=== PATIENT | male | born 1940 | race American Indian/Alaskan Native ===

== ENCOUNTER 2020-01-27 07:50 | Observation (INO) | payer BC ==
[2020-01-27 09:20] LABS: Hematocrit 43.1 % (35.5-45.6); Hemoglobin 14.5 gm/dl (11.8-15.2); Mean Corpuscular HGB Conc 34 % (32-34); Mean Corpuscular Volume 106 fl (84-94); Platelet Count 236 K/mm3 (140-440); Red Blood Count 4.07 M/mm3 (3.65-5.03); Red Cell Distribution Width 15.3 % (13.2-15.2)
[2020-01-27 09:30] LABS: INR 0.95 (0.87-1.13)
[2020-01-27 09:31] LABS: Partial Thromboplastin Time 29.2 Sec. (24.2-36.6)
[2020-01-27 09:34] LABS: BUN/Creatinine Ratio 18; Blood Urea Nitrogen 21 mg/dL (9-20); Calcium 9.6 mg/dL (8.4-10.2); Hemolysis Index 19
[2020-01-27] MEDS: CLOPIDOGREL 75 MG TAB PO SCH (09:40)
[2020-01-27] MEDS: SODIUM CHLORIDE 0.9% 500 ML 500 ML IV SCH ×2 (09:42→10:20)
[2020-01-27] MEDS ORDERED: ASPIRIN EC 81 MG TAB PO SCH (10:00)
[2020-01-27] MEDS ORDERED: fentaNYL 100 MCG/2 ML INJ ONE (10:03)
[2020-01-27] MEDS ORDERED: NITROGLYCERIN SYRINGE 3 ML ONE (10:03)
[2020-01-27] MEDS ORDERED: HEPARIN/NS 5000 UNIT/500ML 1,000 ML IR ONE (10:03)
[2020-01-27] MEDS ORDERED: MIDAZOLAM 2 MG/2 ML INJ ONE (10:03)
[2020-01-27] MEDS ORDERED: LIDOCAINE (2%) 20 MG/1 ML VIAL 20 ML MDV INFILTRATI ONE (10:03)
[2020-01-27] MEDS: VERAPAMIL 5 MG/2 ML INJ ONE ×2 (10:31→10:35)
[2020-01-27] MEDS: HEPARIN 10,000 UNITS/10 ML VIAL ONE ×2 (10:31→10:50)
[2020-01-27] MEDS ORDERED: SODIUM CHLORIDE 0.9% 500 ML 500 ML ONE (10:55)
[2020-01-27] MEDS ORDERED: HEPARIN/NS 5000 UNIT/500ML 500 ML IR ONE (11:04)
[2020-01-27] MEDS ORDERED: HEPARIN 10,000 UNITS/10 ML VIAL ONE (11:08)
[2020-01-27] MEDS ORDERED: CLOPIDOGREL 300 MG TAB ONE (11:25)
[2020-01-27] MEDS ORDERED: ALUM-MAG HYDROXIDE-SIMETHICONE 200-200-20MG/5ML ORAL LIQD 30 ML ONE (11:25)
--- NOTE | 2020-01-27 12:07 | Short Stay Summary ---
Short Stay Documentation Date of service: 01/27/20 - History H&P: obtained from office - Allergies and Medications Current Medications: Allergies No Known Allergies Allergy (Unverified 01/27/20 08:35) Home Medications Medication Instructions Recorded Confirmed Last Taken Type Clopidogrel [Plavix] 75 mg PO QDAY 01/27/20 01/27/20 01/27/20 History 0921 Losartan/Hydrochlorothiazide 25 - 100 mg PO DAILY 01/27/20 01/27/20 01/26/20 History [Losartan-Hctz 50-12.5 mg Tab] 1 tab Simvastatin 20 mg PO DAILY 01/27/20 01/27/20 01/26/20 History 1 tab Active Medications Aspirin (Halfprin Ec) 81 mg PO QDAY [facility] Last Admin: 01/27/20 09:40 Dose: 81 mg Documented by: Aspirin (Baby Aspirin) 81 mg PO QDAY RADHA Clopidogrel Bisulfate (Plavix) 75 mg PO QDAY [facility] Last Admin: 01/27/20 09:40 Dose: 75 mg Documented by: Sodium Chloride (Nacl 0.9% 500 Ml) 500 mls @ 50 mls/hr IV DIRECT RADHA Stop: 01/27/20 23:59 Last Admin: 01/27/20 10:20 Dose: 50 mls/hr Documented by: - Brief post op/procedure progress note Date of procedure: 01/27/20 Pre-op diagnosis: abnormal stress test Post-op diagnosis: other (CAD) Procedure: CAD with PCI - see dictated cath report Anesthesia: local Estimated blood loss: none Condition: stable - Disposition Condition at discharge: Good Disposition: DC-01 TO HOME OR SELFCARE - Discharge Diagnoses (1) CAD (coronary artery disease) Status: Chronic (2) Stented coronary artery Status: Chronic (3) HTN (hypertension) Status: Chronic (4) Hyperlipidemia Status: Chronic (5) PVD (peripheral vascular disease) Status: Chronic (6) Carotid stenosis Status: Chronic Short Stay Discharge Plan Activity: advance as tolerated Diet: low fat, low cholesterol, low salt Wound: open to air, keep clean and dry, per your surgeon's advice Follow up with: LARISA GARCIA MD [Primary Care Provider] - 7 Days SARMAD MCKENZIE MD [Staff Physician] - 7 Days
--- NOTE | 2020-01-27 12:38 | Cardiac Catherization Report ---
LEFT HEART CATH-PERCUTANEOUS CORONARY INTERVENTION-INTRAVASCULAR ULTRASOUND REPORT CLINICAL INFORMATION: This patient is a 79-year-old gentleman with past medical history of hypertension, hyperlipidemia, left carotid occlusion, is here with shortness of breath with abnormal stress test. Procedure was done with moderate sedation started at 10:29, finished at 11:18, which is 49 minutes of moderate sedation. Procedure was performed via the right radial artery, sterile technique, local anesthesia, 6-[place] radial sheath inserted. Subselectively, left system engaged with an AL1 catheter. Left main is large and patent, bifurcates into medium caliber LAD that is diffusely 30%, diagonal 1 is a medium caliber vessel, patent with mild luminal irregularities. Circumflex is patent, mid section after OM1 has a 40% lesion. OM1 proximal has a 95% lesion of a [id number] caliber vessel and OM2 is a small to medium caliber vessel, patent, distal circ small patent. RCA engaged with JR4 catheter, dominant vessel, mid 99% with NONI 2 flow. LV gram done in ELVIRA and SOOD view shows normal LV function, LVEDP is 13 mmHg, LV is 124, aortic is 123/59. No gradient across the aortic valve on pullback. PERCUTANEOUS CORONARY INTERVENTION OF THE RCA: 1. Engaged the RCA with AL1 catheter. 2. Crossed with a short [place] wire. 3. Predilated with 2.0 x 15 balloon x 3 inflations at 15 atmospheres. 4. Intravascular ultrasound shows diffuse disease in the mid portion, but distal reference vessel 4.0 x 4.5 and proximal 4.0 x 4.5. 5. Stented proximal and mid RCA with a drug-eluting Xience 4.0 x 38 mm at 15 atmospheres. 6. Excellent angiographic result, good NONI 3 flow, good stent apposition and expansion noted. Coronary wire was removed. Multiple angiograms, continued NONI 3 flow, reduced stenosis 0%. 7. A 6-Sw[place] guiding catheter taken over guidewire, 6-Swazi radial sheath was discontinued. Radial band applied. No hematoma, no bleeding. SUMMARY: 1. Successful PCI of the proximal mid RCA with a drug-eluting Xience 4.0 x 38 mm PDA, PLV are small to medium caliber vessel with multiple branches patent. 2. Left main patent, LAD mid diffuse 30%, diagonal patent, circumflex mid 40% after OM1, which has a proximal ostial 95% lesion. OM2 is patent. 3. Normal LV function. If this patient still has shortness of breath, I will consider PCI of OM1 and discussed this with the patient and primary will call clerk and family in detail. Continue dual-antiplatelet therapy. JOB# [id number] LEONARDO/NTS
[2020-01-28 04:35] VITALS: BP 127/64
[2020-01-28 05:43] LABS: Basophils # (Auto) 0.1 K/mm3 (0.0-0.1); Basophils % (Auto) 0.9 % (0.0-1.8); Eosinophils # (Auto) 0.4 K/mm3 (0.0-0.4); Eosinophils % (Auto) 5.2 % (0.0-4.3); Hematocrit 37.7 % (35.5-45.6); Lymphocytes # (Auto) 1.7 K/mm3 (1.2-5.4); Mean Corpuscular HGB Conc 34 % (32-34); Mean Corpuscular Volume 106 fl (84-94); Monocytes % (Auto) 12.3 % (0.0-7.3); Platelet Count 195 K/mm3 (140-440); Red Blood Count 3.57 M/mm3 (3.65-5.03); Red Cell Distribution Width 15.5 % (13.2-15.2)
[2020-01-28 07:13] LABS: BUN/Creatinine Ratio 16; Blood Urea Nitrogen 18 mg/dL (9-20); Calcium 8.8 mg/dL (8.4-10.2); Hemolysis Index 17
--- NOTE | 2020-01-28 08:57 | XRay Report ---
CHEST 1 VIEW INDICATION / CLINICAL INFORMATION: post pci. COMPARISON: None available. FINDINGS: SUPPORT DEVICES: None. HEART / MEDIASTINUM: No significant abnormality. LUNGS / PLEURA: No significant pulmonary abnormality. Blunting of the left costophrenic angle suggest ing small effusion. No pneumothorax. ADDITIONAL FINDINGS: No significant additional findings. IMPRESSION: 1. Small left pleural effusion. Signer Name: Bryson Conde MD Signed: 01/28/2020 8:53 AM Workstation Name: [id number]
[2020-01-28] MEDS: CLOPIDOGREL 75 MG TAB PO SCH (09:34)
[2020-01-28] MEDS ORDERED: HYDROCHLOROTHIAZIDE PO SCH (10:00)
[2020-01-28] MEDS ORDERED: ASPIRIN 81 MG TAB CHEW PO SCH (10:00)
[2020-01-28] MEDS ORDERED: NON-FORMULARY EACH (Simvastatin [Simvastatin] 20 MG) PO SCH (10:00)
[2020-01-28] MEDS ORDERED: LOSARTAN PO SCH (10:00)
[2020-01-28] MEDS ORDERED: hydroCHLOROthiazide 12.5 MG CAP PO SCH (10:00)
[2020-01-28] MEDS ORDERED: LOSARTAN 50 MG TAB PO SCH (10:00)
--- NOTE | 2020-01-28 10:49 | Progress Note ---
Assessment and Plan stable cv status, asx RRA site looks good ecg/labs/tele ok cont plavix/asa - importance of compliance w dapt d/w pt at length f/u w Dr Interiano in office in 1-2 weeks - Patient Problems (1) CAD (coronary artery disease) Current Visit: Yes Status: Chronic (2) HTN (hypertension) Current Visit: Yes Status: Chronic (3) Hyperlipidemia Current Visit: Yes Status: Chronic (4) PVD (peripheral vascular disease) Current Visit: Yes Status: Chronic (5) Stented coronary artery Current Visit: Yes Status: Chronic Subjective Date of service: 01/28/20 Interval history: no xs, no cp/sob Objective Vital Signs Temp Pulse Resp BP Pulse Ox 01/28/20 10:39 22 01/28/20 04:02 97.4 F L 66 18 127/64 93 01/27/20 23:44 98.2 F 69 18 96/44 94 01/27/20 22:42 22 01/27/20 22:00 59 L 01/27/20 19:41 98.2 F 01/27/20 19:35 75 20 155/78 95 01/27/20 16:00 65 24 144/66 97 01/27/20 15:30 63 16 150/60 98 01/27/20 15:00 62 26 H 115/62 98 01/27/20 14:30 65 29 H 122/62 98 01/27/20 14:00 64 26 H 131/53 98 01/27/20 13:45 27 H 120/57 98 01/27/20 13:30 67 25 H 120/57 98 01/27/20 13:15 65 20 114/57 98 01/27/20 13:00 67 25 H 123/69 98 01/27/20 12:45 66 25 H 116/59 97 01/27/20 12:30 64 25 H 105/68 97 01/27/20 12:00 66 20 125/70 98 01/27/20 11:48 98.3 F 64 21 134/87 98 - Labs and Meds Cardiac Enzymes 01/28/20 Range/Units 04:30 CK-MB (CK-2) 4.0 (0.0-4.0) ng/mL CBC 01/28/20 Range/Units 04:30 WBC 7.9 (4.5-11.0) K/mm3 RBC 3.57 L (3.65-5.03) M/mm3 Hgb 13.0 (11.8-15.2) gm/dl Hct 37.7 (35.5-45.6) % Plt Count 195 (140-440) K/mm3 Lymph # 1.7 (1.2-5.4) K/mm3 Leon # 1.0 H (0.0-0.8) K/mm3 Eos # 0.4 (0.0-0.4) K/mm3 Baso # 0.1 (0.0-0.1) K/mm3 Comprehensive Metabolic Panel 01/28/20 Range/Units 04:30 Sodium 139 (137-145) mmol/L Potassium 4.0 (3.6-5.0) mmol/L Chloride 101.7 (98-107) mmol/L Carbon Dioxide 25 (22-30) mmol/L BUN 18 (9-20) mg/dL Creatinine 1.1 (0.8-1.3) mg/dL Glucose 98 (75-100) mg/dL Calcium 8.8 (8.4-10.2) mg/dL
[2020-01-28] MEDS ORDERED: PRAVASTATIN 40 MG TAB PO SCH (22:00)
== END 2020-01-28 12:06 | disposition home or self-care (01) ==
LOC: CATHLABREC 07:50 → 4A 12:00
PROVIDERS: ADMIT Internal Medicine; ATTEND Internal Medicine
DX: I25.10 Atherosclerotic heart disease of native coronary artery without angina pectoris (principal); I10 Essential (primary) hypertension; I65.23 Occlusion and stenosis of bilateral carotid arteries; I77.1 Stricture of artery; E78.5 Hyperlipidemia, unspecified; Z90.49 Acquired absence of other specified parts of digestive tract; Z98.890 Other specified postprocedural states; Z96.642 Presence of left artificial hip joint; Z86.39 Personal history of other endocrine, nutritional and metabolic disease
CPT/HCPCS: 36415; 71045; 80048; 82550; 82553; 84484; 85025; 85027; 85347; 85610; 85730; 92978; 93005; 93458; 96360; 96361; C1725; C1753; C1769; C1874; C1887; C1894; C9600; G0378; J1644; J2250; J3010; J7040; 92928; Q9967

== ENCOUNTER 2020-02-17 06:45 | Observation (INO) | payer BC, MEDICARE ==
[2020-02-17 07:38] LABS: Basophils # (Auto) 0.1 K/mm3 (0.0-0.1); Basophils % (Auto) 1.5 % (0.0-1.8); Eosinophils # (Auto) 0.8 K/mm3 (0.0-0.4); Eosinophils % (Auto) 10.9 % (0.0-4.3); Hematocrit 41.1 % (35.5-45.6); Lymphocytes # (Auto) 2.3 K/mm3 (1.2-5.4); Lymphocytes % (Auto) 31.5 % (13.4-35.0); Mean Corpuscular HGB Conc 34 % (32-34); Mean Corpuscular Volume 105 fl (84-94); Monocytes # (Auto) 0.8 K/mm3 (0.0-0.8); Monocytes % (Auto) 11.2 % (0.0-7.3); Platelet Count 231 K/mm3 (140-440); Red Cell Distribution Width 15.4 % (13.2-15.2)
[2020-02-17 07:49] LABS: BUN/Creatinine Ratio 18; Blood Urea Nitrogen 23 mg/dL (9-20); Calcium 9.6 mg/dL (8.4-10.2); Hemolysis Index 0
[2020-02-17 07:50] LABS: INR 0.97 (0.87-1.13)
[2020-02-17] MEDS ORDERED: SODIUM CHLORIDE 0.9% 500 ML 500 ML IV SCH (08:00)
[2020-02-17] MEDS ORDERED: HEPARIN/NS 5000 UNIT/500ML 1,000 ML IR ONE (08:10)
[2020-02-17] MEDS: fentaNYL 100 MCG/2 ML INJ ONE ×2 (08:41→09:22)
[2020-02-17] MEDS: MIDAZOLAM 2 MG/2 ML INJ ONE ×2 (08:41→09:22)
[2020-02-17] MEDS: LIDOCAINE (2%) 20 MG/1 ML VIAL 20 ML MDV INFILTRATI ONE ×2 (08:41→09:31)
[2020-02-17] MEDS: VERAPAMIL 5 MG/2 ML INJ ONE ×2 (08:41→09:33)
[2020-02-17] MEDS: HEPARIN 10,000 UNITS/10 ML VIAL ONE ×8 (08:42→10:47)
[2020-02-17] MEDS: NITROGLYCERIN SYRINGE 3 ML ONE ×2 (08:42→09:33)
[2020-02-17] MEDS ORDERED: ATROPINE 0.1% (1 MG/10 ML) CARDIAC SYRINGE ONE (09:33)
[2020-02-17] MEDS ORDERED: PHENYLEPHRINE/NS 1,000 MCG/10 ML SYRINGE (OR USE) IV ONE (09:38)
[2020-02-17] MEDS ORDERED: SODIUM CHLORIDE 0.9% 1000 ML 1,000 ML ONE (10:09)
[2020-02-17] MEDS ORDERED: ALUM-MAG HYDROXIDE-SIMETHICONE 200-200-20MG/5ML ORAL LIQD 30 ML ONE (10:50)
[2020-02-17] MEDS ORDERED: CLOPIDOGREL 300 MG TAB ONE (10:50)
[2020-02-17] MEDS ORDERED: HYDROcodone/ACETAMINOPHEN 5-325 MG TAB PO PRN (11:00)
--- NOTE | 2020-02-17 11:36 | Short Stay Summary ---
Short Stay Documentation Date of service: 02/17/20 - History H&P: obtained from office - Allergies and Medications Current Medications: Allergies No Known Allergies Allergy (Unverified 01/27/20 08:35) Home Medications Medication Instructions Recorded Confirmed Last Taken Type Clopidogrel [Plavix] 75 mg PO QDAY tablet 01/27/20 02/17/20 02/17/20 05:30 Rx Losartan/Hydrochlorothiazide 25 - 100 mg PO DAILY 01/27/20 02/17/20 02/17/20 05:30 History [Losartan-Hctz 50-12.5 mg Tab] Simvastatin 20 mg PO DAILY 01/27/20 02/17/20 02/16/20 History Aspirin 325 mg PO QDAY 02/17/20 02/17/20 02/17/20 07:50 History Aspirin EC [Halfprin EC] 81 mg PO QDAY 02/17/20 02/17/20 Unknown History Active Medications Hydrocodone Bitart/Acetaminophen ([place] 5/325) 1 each PO Q6H PRN PRN Reason: Pain, Moderate (4-6) Aspirin (Halfprin Ec) 81 mg PO QDAY [facility] Clopidogrel Bisulfate (Plavix) 75 mg PO QDAY [facility] Hydrochlorothiazide (Hctz) 12.5 mg PO QDAY [facility] Sodium Chloride (Nacl 0.9% 500 Ml) 500 mls @ 50 mls/hr IV DIRECT RADHA Stop: 02/17/20 17:59 Last Admin: 02/17/20 10:10 Dose: 500 mls Documented by: Losartan Potassium (Cozaar) 50 mg PO QDAY [facility] Pravastatin Sodium (Pravachol) [address] [facility] - Brief post op/procedure progress note Date of procedure: 02/17/20 Pre-op diagnosis: CAD Post-op diagnosis: same Procedure: C with PCI - see dictated cath report Anesthesia: local Estimated blood loss: none Condition: stable - Disposition Condition at discharge: Good Disposition: DC-01 TO HOME OR SELFCARE - Discharge Diagnoses (1) CAD (coronary artery disease) Status: Chronic (2) Stented coronary artery Status: Chronic (3) Carotid stenosis Status: Chronic (4) HTN (hypertension) Status: Chronic (5) Hyperlipidemia Status: Chronic (6) PVD (peripheral vascular disease) Status: Chronic Short Stay Discharge Plan Activity: advance as tolerated Diet: low fat, low cholesterol, low salt Wound: open to air, keep clean and dry, per your surgeon's advice Follow up with: DR ANGI [Other] - 7 Days SARMAD MCKENZIE MD [Staff Physician] - 7 Days
--- NOTE | 2020-02-17 14:25 | Cardiac Catherization Report ---
LEFT HEART CATHETERIZATION/PERCUTANEOUS CORONARY INTERVENTION/INTRAVASCULAR ULTRASOUND REPORT CLINICAL INFORMATION: This is a 80-year-old gentleman with a past medical history of right bundle-branch block, known coronary arterial disease several weeks ago, had PCI of the RCA with a drug-eluting Xience 4.0 x 38. He has hypertension, hyperlipidemia, carotid stenosis, having continued shortness of breath despite medical therapy, still have residual symptoms, was here for procedure. Procedure was done with moderate sedation, started at 0922 hours and finished at 1032 hours which is 70 minutes of moderate sedation. Procedure was performed via the right radial artery, sterile technique, local anesthesia, 6-[place] radial sheath inserted. LV gram done in ELVIRA and SOOD shows normal LV function, LVEDP 11 mmHg, LV is 102. Aortic is 102/53. No gradient across the aortic valve on pullback. RCA engaged with JR4 catheter, it is a large dominant vessel with proximal, mid stent widely patent. PDA, PLV medium to large caliber vessels are patent. LCA engaged with difficulty with an AL1, which revealed left main large caliber vessel patent. LAD is a large caliber vessel patent, mild luminal irregularities. Diagonal 1 is medium caliber vessel patent. Circumflex medium caliber vessel. OM1 has an ostial 95% lesion at a 90-degree angle circumflex after OM1 has 89% lesion. OM2 patent. So, percutaneous/intravascular ultrasound of OM1 and circumflex, strategy was a T-stenting, strategy on this patient so wired OM1 with a Runthrough wire and wired the circumflex with a [place] wire. Predilated the OM1 with a 2.5 x 12 balloon at 12 atmospheres x 2 inflations. Then, stented the OM1 with a drug-eluting Resolute [place] 2.5 x 15 up to the ostium. IVUS the OM1, which revealed stent opposed and expanded, but it is up to the ostium of OM1. No residual stent in circumflex. IVUS the circumflex, which revealed significant disease in the circumflex after OM1 when MLA less than 2.5 mm2. Then, stented the circumflex across OM1 with a drug-eluting Resolute 3.0 x 15 removing the Runthrough wire and inflated at 15 atmospheres. Then, rewired the OM1 with a [place] intuition wire and then placed a 2.0 x 10 balloon in the OM going to a circumflex and 2.0 x 10 balloon in the circumflex, across the OM1 using kissing balloon technique and inflated both at 8 atmospheres and removed wires and balloon. Excellent angiographic results. Stent was well opposed and expanded, NONI 3 flow continued to OM to the circumflex system. Stent was expanded. No dissection or perforation noted. The guide was taken over guidewire. A 6-[place] Citizen radial sheath was discontinued. Radial band applied. No internal bleeding. SUMMARY: 1. Normal left ventricular function, patent proximal mid right coronary artery stent. 2. Successful percutaneous coronary intervention of the bifurcating lesion of OM1 and circumflex with OM1 having a T-stenting with a drug-eluting Resolute [place] 2.5 x 15 and then the circumflex across the OM1 with a drug-eluting Resolute Rg 3.0 x 15 postdilated with kissing balloons. Normal left ventricular function. Post percutaneous coronary intervention care. Continue dual antiplatelet, IV fluids. Discussed this in detail with the patient and the patient's family. JOB# [id number] LEONARDO/JOHNNY ROJAS
[2020-02-17] MEDS ORDERED: PRAVASTATIN 40 MG TAB PO SCH (22:00)
[2020-02-18 07:33] LABS: Basophils # (Auto) 0.1 K/mm3 (0.0-0.1); Eosinophils # (Auto) 0.6 K/mm3 (0.0-0.4); Eosinophils % (Auto) 8.6 % (0.0-4.3); Hematocrit 36.9 % (35.5-45.6); Hemoglobin 12.7 gm/dl (11.8-15.2); Lymphocytes # (Auto) 1.7 K/mm3 (1.2-5.4); Lymphocytes % (Auto) 23.1 % (13.4-35.0); Mean Corpuscular HGB Conc 34 % (32-34); Mean Corpuscular Volume 106 fl (84-94); Monocytes # (Auto) 0.8 K/mm3 (0.0-0.8); Monocytes % (Auto) 11.2 % (0.0-7.3); Platelet Count 198 K/mm3 (140-440); Red Blood Count 3.49 M/mm3 (3.65-5.03); Red Cell Distribution Width 15.3 % (13.2-15.2)
[2020-02-18 07:57] LABS: Creatine Kinase MB 3.8 ng/mL (0.0-4.0)
[2020-02-18 08:00] LABS: BUN/Creatinine Ratio 14; Blood Urea Nitrogen 18 mg/dL (9-20); Calcium 9.2 mg/dL (8.4-10.2); Hemolysis Index 9
[2020-02-18 08:15] LABS: Chol/HDL Ratio 2.82 %; HDL Cholesterol 40 mg/dL (40-59); LDL Cholesterol,Direct 57 mg/dL (50-130)
[2020-02-18] MEDS ORDERED: CLOPIDOGREL 75 MG TAB PO SCH (10:00)
[2020-02-18] MEDS ORDERED: hydroCHLOROthiazide 12.5 MG CAP PO SCH (10:00)
[2020-02-18] MEDS ORDERED: LOSARTAN PO SCH (10:00)
[2020-02-18] MEDS ORDERED: ASPIRIN EC 81 MG TAB PO SCH (10:00)
[2020-02-18] MEDS ORDERED: LOSARTAN 50 MG TAB PO SCH (10:00)
[2020-02-18] MEDS ORDERED: NON-FORMULARY EACH (Simvastatin [Simvastatin] 20 MG) PO SCH (10:00)
[2020-02-18] MEDS ORDERED: HYDROCHLOROTHIAZIDE PO SCH (10:00)
--- NOTE | 2020-02-18 10:27 | XRay Report ---
CHEST 1 VIEW, 02/18/2020 9:04 AM CLINICAL INFORMATION/INDICATION: Post PCI COMPARISON: Chest radiograph, 01/28/2020 FINDINGS: SUPPORT DEVICES: None. HEART: The cardiac silhouette is normal in size. LUNGS/PLEURA: The lungs are clear of focal airspace disease or significant pleural effusion. ADDITIONAL FINDINGS: No additional acute findings. IMPRESSION: 1. No evidence of acute cardiopulmonary process. Signer Name: Rossy Meredith MD Signed: 02/18/2020 10:22 AM Workstation Name: [id number]
--- NOTE | 2020-02-18 11:25 | Progress Note ---
Assessment and Plan asx rra site looks feels good w/ ambulation ecg, labs reviewed may go - f/u w dr walker in office importance of compliance with dapt (asa and plavix) reiterated. - Patient Problems (1) CAD (coronary artery disease) Current Visit: No Status: Chronic (2) Carotid stenosis Current Visit: No Status: Chronic (3) HTN (hypertension) Current Visit: No Status: Chronic (4) PVD (peripheral vascular disease) Current Visit: No Status: Chronic (5) Stented coronary artery Current Visit: No Status: Chronic Subjective Date of service: 02/18/20 Interval history: no sxs Objective Vital Signs Temp Pulse Pulse Resp BP BP Pulse Ox 02/18/20 07:22 98.1 F 64 18 141/70 96 02/18/20 03:33 98.2 F 64 16 145/63 95 02/17/20 23:46 98.2 F 65 16 120/65 94 02/17/20 20:16 78 02/17/20 18:52 99.4 F 78 20 117/58 94 02/17/20 17:00 79 124/61 02/17/20 15:01 97.8 F 64 20 133/77 94 02/17/20 13:43 63 02/17/20 12:30 60 21 100/55 97 02/17/20 12:16 64 22 101/51 94 02/17/20 12:00 66 24 124/55 96 02/17/20 11:45 67 27 H 116/56 96 02/17/20 11:30 63 10 L 122/64 96 - Labs and Meds Cardiac Enzymes 02/18/20 Range/Units 06:42 CK-MB (CK-2) 3.8 (0.0-4.0) ng/mL Lipids 02/18/20 Range/Units 06:42 Triglycerides 153 H (2-149) mg/dL Cholesterol 113 (50-199) mg/dL HDL Cholesterol 40 (40-59) mg/dL Cholesterol/HDL Ratio 2.82 % CBC 02/18/20 Range/Units 06:42 WBC 7.4 (4.5-11.0) K/mm3 RBC 3.49 L (3.65-5.03) M/mm3 Hgb 12.7 (11.8-15.2) gm/dl Hct 36.9 (35.5-45.6) % Plt Count 198 (140-440) K/mm3 Lymph # (Auto) 1.7 (1.2-5.4) K/mm3 [place]hing # (Auto) 0.8 (0.0-0.8) K/mm3 Eos # (Auto) 0.6 H (0.0-0.4) K/mm3 Baso # (Auto) 0.1 (0.0-0.1) K/mm3 Comprehensive Metabolic Panel 02/18/20 Range/Units 06:42 Sodium 141 (137-145) mmol/L Potassium 4.3 (3.6-5.0) mmol/L Chloride 101.6 (98-107) mmol/L Carbon Dioxide 31 H (22-30) mmol/L BUN 18 (9-20) mg/dL Creatinine 1.3 (0.8-1.3) mg/dL Glucose 97 (75-100) mg/dL Calcium 9.2 (8.4-10.2) mg/dL
[2020-02-18 12:22] VITALS: BP 129/62
== END 2020-02-18 12:40 | disposition home or self-care (01) ==
LOC: CATHLABREC 06:45 → 4A 10:38
PROVIDERS: ADMIT Internal Medicine; ATTEND Internal Medicine
DX: I25.10 Atherosclerotic heart disease of native coronary artery without angina pectoris (principal); I10 Essential (primary) hypertension; R06.02 Shortness of breath; I65.23 Occlusion and stenosis of bilateral carotid arteries; I73.9 Peripheral vascular disease, unspecified; E78.5 Hyperlipidemia, unspecified; Z86.39 Personal history of other endocrine, nutritional and metabolic disease; Z98.890 Other specified postprocedural states; Z79.82 Long term (current) use of aspirin; Z95.1 Presence of aortocoronary bypass graft
CPT/HCPCS: 36415; 71045; 80048; 80061; 82550; 82553; 84484; 85025; 85610; 85730; 92978; 93005; 93458; A9270; C1725; C1753; C1769; C1874; C1887; C1894; C9600; C9601; G0378; J1644; J2250; J2370; J3010; J7030; J7040; 92928; 92929; J0461; Q9967